=== PATIENT | female | born 1950 | race Caucasian/White ===

== ENCOUNTER 2020-01-04 13:32 | Inpatient (IN) | payer MEDICARE, OTHER ==
--- NOTE | 2020-01-04 14:16 | ED ---
General Adult HPI - General Chief complaint: GI Bleed Stated complaint: GI bleed Time Seen by Provider: 01/04/20 14:04 Source: patient, RN notes reviewed, old records reviewed Mode of arrival: ambulatory Limitations: no limitations - History of Present Illness Initial comments: 69-year-old female presenting for evaluation of rectal bleeding. Patient has had 2 or 3 episodes daily for the past 4 days of bright red rectal bleeding. She's had bleeding both with and without bowel movements. She has history of factor V Leiden and is currently on Coumadin. She states she had an elevated level approximately one week ago greater than 4. She had been evaluated by her primary care physician recommended she present to the emergency department for evaluation of rectal bleeding. She has some mild fatigue, no significant dyspnea, no chest pain. She has some crampy abdominal pain prior to episodes of rectal bleeding. No persistent abdominal pain. No fever. Patient states she had a colonoscopy approximately 3 years ago and was told he had diverticulosis. - Related Data Allergies Allergy/AdvReac Type Severity Reaction Status Date / Time No Known Allergies Allergy Verified 01/04/20 13:40 Review of Systems ROS Statement: Those systems with pertinent positive or pertinent negative responses have been documented in the HPI. ROS Other: All systems not noted in ROS Statement are negative. Past Medical History Additional Past Medical History / Comment(s): fact 5 blood disorder, thrombocyt openia History of Any Multi-Drug Resistant Organisms: None Reported Past Surgical History: Appendectomy, Cholecystectomy, Tonsillectomy, Tubal Ligation Additional Past Surgical History / Comment(s): hemorrhoid Past Psychological History: No Psychological Hx Reported Smoking Status: Never smoker Past Alcohol Use History: None Reported Past Drug Use History: None Reported General Exam Limitations: no limitations General appearance: alert, in no apparent distress Head exam: Present: atraumatic, normocephalic Eye exam: Present: normal appearance, PERRL ENT exam: Present: normal exam Neck exam: Present: normal inspection. Absent: tenderness, meningismus Respiratory exam: Present: normal lung sounds bilaterally Cardiovascular Exam: Present: regular rate, normal rhythm, systolic murmur GI/Abdominal exam: Present: soft. Absent: distended, tenderness, guarding, rebound Rectal exam: Present: normal rectal tone, bloody stool, hemorrhoids (Small nonbleeding hemorrhoid) Extremities exam: Present: normal inspection, normal capillary refill. Absent: pedal edema Neurological exam: Present: alert, oriented X3, CN II-XII intact. Absent: motor sensory deficit Psychiatric exam: Present: normal affect Skin exam: Present: warm, dry, intact. Absent: cyanosis, diaphoretic Course Vital Signs 01/04/20 13:33 Temperature 98.4 F Pulse Rate 106 H Respiratory 16 Rate Blood Pressure 144/89 O2 Sat by Pulse 99 Oximetry Medical Decision Making - Medical Decision Making 69-year-old female presenting with rectal bleeding, hematochezia. No active bleeding at the time my examination. Vital signs are stable. Hemoglobin is 14, INR is subtherapeutic at 1.2. I suspect this is all lower GI hemorrhage however will initiate Protonix for this patient. Repeat hemoglobin has been ordered. She will be admitted for serial hemoglobin, close monitoring, GI consultation. - Lab Data Result diagrams: 01/04/20 14:07 01/04/20 14:07 Lab Results 01/04/20 01/04/20 01/04/20 Range/Units 14:01 14:07 14:07 WBC 5.9 (3.8-10.6) k/uL RBC 4.89 (3.80-5.40) m/uL Hgb 14.8 (11.4-16.0) gm/dL Hct 44.7 (34.0-46.0) % MCV 91.3 (80.0-100.0) fL MCH 30.4 (25.0-35.0) pg MCHC 33.2 (31.0-37.0) g/dL RDW 12.7 (11.5-15.5) % Plt Count 285 (150-450) k/uL Neutrophils % 52 % Lymphocytes % 33 % Monocytes % 7 % Eosinophils % 4 % Basophils % 1 % Neutrophils # 3.1 (1.3-7.7) k/uL Lymphocytes # 1.9 (1.0-4.8) k/uL Monocytes # 0.4 (0-1.0) k/uL Eosinophils # 0.2 (0-0.7) k/uL Basophils # 0.0 (0-0.2) k/uL PT 12.3 H (9.0-12.0) sec INR 1.2 H (<1.2) APTT 27.1 (22.0-30.0) sec Sodium (137-145) mmol/L Potassium (3.5-5.1) mmol/L Chloride (98-107) mmol/L Carbon Dioxide (22-30) mmol/L Anion Gap mmol/L BUN (7-17) mg/dL Creatinine (0.52-1.04) mg/dL Est GFR (CKD-EPI)AfAm (>60 ml/min/1.73 sqM) Est GFR (CKD-EPI)NonAf (>60 ml/min/1.73 sqM) Glucose (74-99) mg/dL Calcium (8.4-10.2) mg/dL Magnesium (1.6-2.3) mg/dL Total Bilirubin (0.2-1.3) mg/dL AST (14-36) U/L ALT (4-34) U/L Alkaline Phosphatase (38-126) U/L Total Protein (6.3-8.2) g/dL Albumin (3.5-5.0) g/dL Blood Type Recheck No Previous Record Bld Type Recheck Status CABO Indicated Spec Expiration Date 01/07/2020 - 230601/04/20 Range/Units 14:07 WBC (3.8-10.6) k/uL RBC (3.80-5.40) m/uL Hgb (11.4-16.0) gm/dL Hct (34.0-46.0) % MCV (80.0-100.0) fL MCH (25.0-35.0) pg MCHC (31.0-37.0) g/dL RDW (11.5-15.5) % Plt Count (150-450) k/uL Neutrophils % % Lymphocytes % % Monocytes % % Eosinophils % % Basophils % % Neutrophils # (1.3-7.7) k/uL Lymphocytes # (1.0-4.8) k/uL Monocytes # (0-1.0) k/uL Eosinophils # (0-0.7) k/uL Basophils # (0-0.2) k/uL PT (9.0-12.0) sec INR (<1.2) APTT (22.0-30.0) sec Sodium 137 (137-145) mmol/L Potassium 4.6 (3.5-5.1) mmol/L Chloride 101 (98-107) mmol/L Carbon Dioxide 27 (22-30) mmol/L Anion Gap 9 mmol/L BUN 15 (7-17) mg/dL Creatinine 0.90 (0.52-1.04) mg/dL Est GFR (CKD-EPI)AfAm 75 (>60 ml/min/1.73 sqM) Est GFR (CKD-EPI)NonAf 65 (>60 ml/min/1.73 sqM) Glucose 110 H (74-99) mg/dL Calcium 9.9 (8.4-10.2) mg/dL Magnesium 2.1 (1.6-2.3) mg/dL Total Bilirubin 0.9 (0.2-1.3) mg/dL AST 30 (14-36) U/L ALT 19 (4-34) U/L Alkaline Phosphatase 87 (38-126) U/L Total Protein 7.9 (6.3-8.2) g/dL Albumin 4.8 (3.5-5.0) g/dL Blood Type Recheck Bld Type Recheck Status Spec Expiration Date Disposition Clinical Impression: Hematochezia Disposition: ADMITTED IP TO THIS [facility] Condition: Stable Is patient prescribed a controlled substance at d/c from ED?: No Referrals: Nicholas Ribera MD [Primary Care Provider] - 1-2 days Decision to Admit Reason: Admit from EC Decision Date: 01/04/20 Decision Time: 14:49
[2020-01-04 14:21] LABS: Basophils % (A) 1 %; Eosinophils # (A) 0.2 k/uL (0-0.7); Eosinophils % (A) 4 %; HCT 44.7 % (34.0-46.0); HGB 14.8 gm/dL (11.4-16.0); Lymphocytes # (A) 1.9 k/uL (1.0-4.8); Lymphocytes % (A) 33 %; MCH 30.4 pg (25.0-35.0); MCHC 33.2 g/dL (31.0-37.0); MCV 91.3 fL (80.0-100.0); Mean Platelet Volume 7.5; Monocytes # (A) 0.4 k/uL (0-1.0); Monocytes % (A) 7 %; Neutrophils # (A) 3.1 k/uL (1.3-7.7); Neutrophils % (A) 52 %; Platelet Count 285 k/uL (150-450); RBC 4.89 m/uL (3.80-5.40); RDW 12.7 % (11.5-15.5); WBC 5.9 k/uL (3.8-10.6)
[2020-01-04 14:33] LABS: Albumin 4.8 g/dL (3.5-5.0); Calcium 9.9 mg/dL (8.4-10.2); Magnesium 2.1 mg/dL (1.6-2.3); Potassium 4.6 mmol/L (3.5-5.1); Total Bilirubin 0.9 mg/dL (0.2-1.3); Total Protein 7.9 g/dL (6.3-8.2)
[2020-01-04 14:36] LABS: INR 1.2 (<1.2); Partial Thromboplastin Time 27.1 sec (22.0-30.0); Prothrombin Time 12.3 sec (9.0-12.0)
[2020-01-04] MEDS ORDERED: NALOXONE 0.4 MG/ML 1 ML VIAL IV PRN (14:46)
[2020-01-04] MEDS ORDERED: PANTOPRAZOLE 40 MG/10 ML VIAL IVP STA (14:46)
[2020-01-04] MEDS ORDERED: ACETAMINOPHEN TAB 325 MG TAB PO PRN (14:46)
[2020-01-04] MEDS ORDERED: PHYTONADIONE 2 MG in SODIUM CHLORIDE 0.9% 50 ML IVPB STA (14:58)
[2020-01-04] MEDS: SODIUM CHLORIDE 0.9% 1,000 ML IV SCH (15:43)
[2020-01-04] MEDS: PANTOPRAZOLE 40 MG/10 ML VIAL IVP SCH (20:14)
[2020-01-04 20:21] LABS: Basophils % (A) 1 %; Eosinophils # (A) 0.3 k/uL (0-0.7); Eosinophils % (A) 5 %; HCT 39.7 % (34.0-46.0); HGB 12.8 gm/dL (11.4-16.0); Lymphocytes # (A) 1.8 k/uL (1.0-4.8); Lymphocytes % (A) 35 %; MCH 29.6 pg (25.0-35.0); MCHC 32.2 g/dL (31.0-37.0); Mean Platelet Volume 7.2; Monocytes # (A) 0.5 k/uL (0-1.0); Monocytes % (A) 9 %; Neutrophils # (A) 2.4 k/uL (1.3-7.7); Neutrophils % (A) 47 %; Platelet Count 257 k/uL (150-450); RBC 4.32 m/uL (3.80-5.40); RDW 12.8 % (11.5-15.5); WBC 5.2 k/uL (3.8-10.6)
--- NOTE | 2020-01-04 22:43 | P.HPIM ---
History of Present Illness H&P Date: 01/04/20 Chief Complaint: Bright red blood per rectum History of presenting complaint: This is a very pleasant 69-year-old patient of Dr. Connor Ribera. 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 About a week ago her INR was up her dose was changed. For last 4 days patient is having intermittent bright red blood per rectum. Also having abdominal cramping with that. Patient had a colonoscopy 3 years ago was found of diverticulosis. Patient has been dizzy lightheaded. The cramping starts in the upper abdomen and goes downwards. INR was 1.20 ER. 2 mg of vitamin K was given. GI was consulted. Patient does feel weak tired rundown. Review of systems: GEN.: Tired EYES: None HEENT: None NECK: None RESPIRATORY: None CARDIOVASCULAR: None GASTROINTESTINAL: As above GENITOURINARY: None MUSCULOSKELETAL: Mild joint pains LYMPHATICS: None HEMATOLOGICAL: [As above PSYCHIATRY: None NEUROLOGICAL: None Past medical history to include: Factor V bated mutation, thrombocytopenia, diverticulosis Social history: Does not smoke or drink alcohol. Son lives with her. Physical examination: VITAL SIGNS: 98.4, 106, 16, blood pressure 144/89, 99% on room air GENERAL: BMI 19.3, laying in bed. EYES: Pupils equal. Conjunctiva normal. HEENT: External appearance of nose and ears normal, oral cavity grossly normal. NECK: JVD not raised; masses not palpable. HEART: First and second heart sounds are normal; no edema. LUNGS: Respiratory rate normal; clear to auscultation. MUSCULOSKELETAL: Evidence of OA especially in the hands ABDOMEN: Soft, nontender, liver spleen not palpable, no masses palpable. PSYCH: Alert and oriented x3; mood and affect normal. NEUROLOGICAL: Cranial nerves grossly intact; no facial asymmetry, power and sensation grossly intact. LYMPHATICS: No lymph nodes palpable in the axilla and neck INVESTIGATIONS, reviewed in the clinical context: White count 5.9 hemoglobin 14.8. Repeat 12.8 potassium 4.6 creatinine 0.9 INR 1.2 Assessment: -Acute GI bleed with tiffany bleeding, could be diverticular in nature. There is no white count or fever. -Colonic diverticulosis -Coumadin monitoring -Factor V Leyden mutation Plan: 2 mg of vitamin K was given earlier. Coumadin has been held. Other home medications to be reviewed. Repeat CBC in the morning. GI was consulted. Care was discussed the patient questions were answered. She'll be kept with clear liquid diet Past Medical History Additional Past Medical History / Comment(s): fact 5 blood disorder, thrombocytopenia, Diverticulosis History of Any Multi-Drug Resistant Organisms: None Reported Past Surgical History: Appendectomy, Cholecystectomy, Tonsillectomy, Tubal Ligation Additional Past Surgical History / Comment(s): hemorrhoid Past Psychological History: No Psychological Hx Reported Smoking Status: Never smoker Past Alcohol Use History: None Reported Past Drug Use History: None Reported - Past Family History Father History Unknown: Yes Mother History Unknown: Yes Medications and Allergies Home Medications Medication Instructions Recorded Confirmed Type ALPRAZolam [Xanax] 0.5 mg PO DAILY PRN 01/04/20 01/04/20 History Atorvastatin [Lipitor] 10 mg PO DAILY 01/04/20 01/04/20 History Cetirizine HCl [Zyrtec] 10 mg PO DAILY 01/04/20 01/04/20 History Cholecalciferol [Vitamin D3 (25 1,000 unit PO DAILY 01/04/20 01/04/20 History Mcg = 1000 Iu)] Gabapentin 600 mg PO TID 01/04/20 01/04/20 History HYDROcodone/APAP 10-325MG [[place] 1 tab PO TID 01/04/20 01/04/20 History 10-325] Levothyroxine Sodium [Synthroid] 100 mcg PO DAILY 01/04/20 01/04/20 History Lisinopril [Zestril] 5 mg PO DAILY 01/04/20 01/04/20 History Meclizine [Antivert] 25 mg PO Q8H PRN 01/04/20 01/04/20 History Ondansetron HCl [Zofran] 8 mg PO Q8H PRN 01/04/20 01/04/20 History Pantoprazole [Protonix] 40 mg PO DAILY 01/04/20 01/04/20 History Warfarin [Coumadin] 3 mg PO SUTUWETHSA 01/04/20 01/04/20 History Warfarin [Coumadin] 6 mg PO MOFR 01/04/20 01/04/20 History Allergies Allergy/AdvReac Type Severity Reaction Status Date / Time No Known Allergies Allergy Verified 01/04/20 18:15 Physical Exam Vitals: Vital Signs Temp Pulse Pulse Resp BP BP Pulse Ox 01/04/20 20:00 98.1 F 73 16 112/66 97 01/04/20 16:00 78 18 01/04/20 15:51 98.4 F 72 18 134/75 98 01/04/20 15:35 98.1 F 97 18 141/81 97 01/04/20 15:00 79 15 149/90 97 01/04/20 14:23 98 01/04/20 13:33 98.4 F 106 H 16 144/89 99 Intake and Output 01/04/20 01/04/20 01/04/20 06:59 14:59 22:59 Other: Voiding Method Toilet # Voids 1 Weight 52.617 kg 52.617 kg Results CBC & Chem 7: 01/04/20 20:07 01/04/20 14:07 Labs: Abnormal Lab Results - Last 24 Hours (Table) 01/04/20 01/04/20 Range/Units 14:07 14:07 PT 12.3 H (9.0-12.0) sec INR 1.2 H (<1.2) Glucose 110 H (74-99) mg/dL
[2020-01-04] MEDS: ALPRAZolam 0.5 MG TAB PO PRN (22:45)
[2020-01-04] MEDS: GABAPENTIN 300 MG CAP PO SCH (22:46)
[2020-01-05] MEDS: LEVOTHYROXINE 50 MCG TAB PO SCH (06:05)
[2020-01-05 06:17] LABS: Basophils % (A) 1 %; Eosinophils # (A) 0.4 k/uL (0-0.7); Eosinophils % (A) 9 %; HCT 40.9 % (34.0-46.0); Lymphocytes # (A) 1.6 k/uL (1.0-4.8); Lymphocytes % (A) 37 %; MCH 29.5 pg (25.0-35.0); MCHC 31.8 g/dL (31.0-37.0); MCV 92.7 fL (80.0-100.0); Mean Platelet Volume 7.2; Monocytes # (A) 0.3 k/uL (0-1.0); Monocytes % (A) 8 %; Neutrophils # (A) 1.8 k/uL (1.3-7.7); Neutrophils % (A) 42 %; Platelet Count 225 k/uL (150-450); RBC 4.42 m/uL (3.80-5.40); RDW 12.7 % (11.5-15.5); WBC 4.3 k/uL (3.8-10.6)
[2020-01-05 06:33] LABS: Albumin 3.8 g/dL (3.5-5.0); Calcium 9.1 mg/dL (8.4-10.2); Potassium 4.8 mmol/L (3.5-5.1); Total Protein 6.6 g/dL (6.3-8.2)
[2020-01-05 07:47] LABS: T4, Free (Free Thyroxine) 1.24 ng/dL (0.78-2.19)
[2020-01-05] MEDS: GABAPENTIN 300 MG CAP PO SCH ×3 (08:51→21:50)
[2020-01-05] MEDS: PANTOPRAZOLE 40 MG/10 ML VIAL IVP SCH ×2 (08:51→20:25)
[2020-01-05] MEDS: HYDROcodone/APAP 10-325MG 1 EACH TAB PO SCH ×3 (08:51→21:50)
[2020-01-05] MEDS: ATORVASTATIN 10 MG TAB PO SCH (08:51)
[2020-01-05] MEDS ORDERED: IOPAMIDOL CONTRAST (ORAL USE) VIAL PO PRN (12:22)
[2020-01-05 13:27] VITALS: BMI 19.0
[2020-01-05] MEDS: PIPERACILLIN-TAZOBACTAM 3.375 GM in SODIUM CHLORIDE 0.9% 100 ML IVPB SCH (13:31)
--- NOTE | 2020-01-05 15:24 | CT ---
EXAMINATION TYPE: CT abdomen pelvis w con DATE OF EXAM: 01/05/2020 COMPARISON: None HISTORY: hematochezia, gi bleed CT DLP: 555.8 mGycm Automated exposure control for dose reduction was used. CONTRAST: Performed with IV Contrast, patient injected with 100 mL of Isovue 300. Lung bases are clear. There is no pleural effusion. Heart size is normal. There is no pericardial eff usion. Liver spleen stomach pancreas appear normal. Gallbladder is absent. The bile ducts are not dilated. There is no adrenal mass. Kidneys have normal size and contour. There is some mild enlargement of the left and right renal pelvis. Delayed images show no sign of obstruction. There is no retroperitoneal adenopathy. Ureters are not dilated. Bladder distends smoothly. There is no free fluid in the pelvis . There is no inguinal hernia. There is no mesenteric edema. There is no ascites or free air. There is no sign of a bowel obstructio n. Lumbar spine is intact. Bony pelvis is intact. There is some hypertrophic osteoarthritis in the ri ght hip joint with spurring of the femoral head. Appendix is not seen. No sign of neck and appendix. There is mild atheromatous change in the abdominal aorta. 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 IMPRESSION: No acute abnormality of the abdomen and pelvis. I do not see a cause for hematochezia.
--- NOTE | 2020-01-05 17:01 | P.PN ---
Progress Note - Text Progress Note Date: 01/05/20 Chief Complaint: Bright red blood per rectum History of presenting complaint: This is a very pleasant 69-year-old patient of Dr. Connor Ribera. 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 About a week ago her INR was up her dose was changed. For last 4 days patient is having intermittent bright red blood per rectum. Also having abdominal cramping with that. Patient had a colonoscopy 3 years ago was found of diverticulosis. Patient has been dizzy lightheaded. The cramping starts in the upper abdomen and goes downwards. INR was 1.20 ER. 2 mg of vitamin K was given. GI was consulted. Patient does feel weak tired rundown. Today-getting intermittent abdominal cramping. No further bleeding. No fever no chills. On a clear liquid diet. Review of systems: Was done for constitutional, cardiovascular, GI, pulmonary. relevant finding as above Active Medications Acetaminophen (Tylenol Tab) 650 mg PO Q6HR PRN PRN Reason: Mild Pain or Fever > 100.5 Hydrocodone Bitart/Acetaminophen ([place] 10) 1 each PO TID [facility] Last Admin: 01/05/20 08:51 Dose: 1 each Documented by: Alprazolam (Xanax) 0.5 mg PO DAILY PRN PRN Reason: Anxiety Last Admin: 01/04/20 22:45 Dose: 0.25 mg Documented by: Atorvastatin Calcium (Lipitor) 10 mg PO DAILY [facility] Last Admin: 01/05/20 08:51 Dose: 10 mg Documented by: Gabapentin (Neurontin) 600 mg PO TID [facility] Last Admin: 01/05/20 08:51 Dose: Not Given Documented by: Sodium Chloride (Saline 0.9%) 1,000 mls @ 20 mls/hr IV .Q24H [facility] Last Admin: 01/04/20 15:43 Dose: 20 mls/hr Documented by: Piperacillin Sod/Tazobactam (Sod 3.375 gm/ Sodium Chloride) 100 mls @ 25 mls/hr IVPB Q8HR [facility] Last Admin: 01/05/20 13:31 Dose: 25 mls/hr Documented by: Levothyroxine Sodium (Synthroid) 100 mcg PO DAILY@0630 [facility] Last Admin: 01/05/20 06:05 Dose: 100 mcg Documented by: Metronidazole (Flagyl) 500 mg PO TID [facility] Naloxone HCl (Narcan) 0.2 mg IV Q2M PRN PRN Reason: Opioid Reversal Pantoprazole Sodium (Protonix) 40 mg IVP BID [facility] Last Admin: 01/05/20 08:51 Dose: 40 mg Documented by: Physical examination: VITAL SIGNS: 98.1, 78, 18, blood pressure 139/71, 100% on room air GENERAL: Laying in bed, awake EYES: Pupils equal. Conjunctiva normal. HEENT: External appearance of nose and ears normal, oral cavity grossly normal. NECK: JVD not raised; masses not palpable. HEART: First and second heart sounds are normal; no edema. LUNGS: Respiratory rate normal; clear to auscultation. MUSCULOSKELETAL: Evidence of OA especially in the hands ABDOMEN: Soft, mild tenderness, liver spleen not palpable, no masses palpable. PSYCH: Alert and oriented x3; mood and affect normal. INVESTIGATIONS, reviewed in the clinical context: White count 5.9 hemoglobin 14.8. Repeat 12.8 potassium 4.6 creatinine 0.9 INR 1.2 Assessment: -Acute GI bleed with tiffany bleeding, could be diverticular in nature. Need to rule out low-grade diverticulitis -Colonic diverticulosis -Coumadin monitoring -Factor V Leyden mutation Plan: Computed tomography scan of the abdomen and pelvis with contrast was ordered. Starting the patient on IV Zosyn and Flagyl. GI input pending. Discussed the patient.
[2020-01-05] MEDS: metroNIDAZOLE 500 MG TAB PO SCH ×2 (17:51→17:55)
--- NOTE | 2020-01-05 20:12 | P.CONS ---
History of Present Illness - Reason for Consult Consult date: 01/05/20 Blood per rectum Requesting physician: Amadou Vivas - Chief Complaint Rectal hemorrhage - History of Present Illness 69-year-old female with factor 5 Leiden deficiency on Coumadin therapy, diverticulosis and colon polyps presented to the hospital with complaints of bright red blood per rectum. She reports 4 days of intermittent bright red blood per rectum. She reports that this was occurring approximately 2-3 times per day. She reports blood was associated with bowel movements. No prior episodes of similar bleeding. She does report some associated abdominal cr amping in the upper abdomen and abdominal distention. She does report feeling lightheaded and weak however hemoglobin remained normal on presentation at 12.8 currently 13 with a WBC of 4.3, platelet count 235,000, INR 1.2 after the given vitamin K with a total bilirubin 1, alkaline phosphatase 57, AST 25 and ALTs 16. Patient reports last colonoscopy approximately 3 years ago significant for poly ps and diverticulosis. The skin of the abdomen performed after presentation to the hospital was negative for any source of bleeding. Review of Systems REVIEW OF SYSTEMS: CONSTITUTIONAL: Denies any fevers, chills, weight change but she did report fati darrius. CARDIOVASCULAR: Denies any chest pain, palpitations high or low blood pressures RESPIRATORY: Denies any shortness of breath, hemoptysis or cough. GENITOURINARY: No dysuria or hematuria. MUSCULOSKELETAL: No weakness reported. SKIN: Denies any new rashes or lesions, jaundice or pallor. PSYCHIATRIC: Denies any depression or anxiety. NEUROLOGY: Denies headache, denies any new focal deficits. EARS/NOSE/THROAT: No recent hearing change, congestion, nasal discharge or sore throat. EYES: No pain in eyes, discharge or change in vision. GASTROINTESTINAL: As per HPI. Past Medical History Past Medical History: Hypertension, Thyroid Disorder Additional Past Medical History / Comment(s): fact 5 blood disorder, thr ombocytopenia, Diverticulosis History of Any Multi-Drug Resistant Organisms: None Reported Past Surgical History: Appendectomy, Cholecystectomy, Tonsillectomy, Tubal Ligation Additional Past Surgical History / Comment(s): hemorrhoid Past Psychological History: No Psychological Hx Reported Smoking Status: Never smoker Past Alcohol Use History: None Reported Past Drug Use History: None Reported - Past Family History Father History Unknown: Yes Mother History Unknown: Yes Medications and Allergies Home Medications Medication Instructions Recorded Confirmed Type ALPRAZolam [Xanax] 0.5 mg PO DAILY PRN 01/04/20 01/04/20 History Atorvastatin [Lipitor] 10 mg PO DAILY 01/04/20 01/04/20 History Cetirizine HCl [Zyrtec] 10 mg PO DAILY 01/04/20 01/04/20 History Cholecalciferol [Vitamin D3 (25 1,000 unit PO DAILY 01/04/20 01/04/20 History Mcg = 1000 Iu)] Gabapentin 600 mg PO TID 01/04/20 01/04/20 History HYDROcodone/APAP 10-325MG [[place] 1 tab PO TID 01/04/20 01/04/20 History 10-325] Levothyroxine Sodium [Synthroid] 100 mcg PO DAILY 01/04/20 01/04/20 History Lisinopril [Zestril] 5 mg PO DAILY 01/04/20 01/04/20 History Meclizine [Antivert] 25 mg PO Q8H PRN 01/04/20 01/04/20 History Ondansetron HCl [Zofran] 8 mg PO Q8H PRN 01/04/20 01/04/20 History Pantoprazole [Protonix] 40 mg PO DAILY 01/04/20 01/04/20 History Warfarin [Coumadin] 3 mg PO SUTUWETHSA 01/04/20 01/04/20 History Warfarin [Coumadin] 6 mg PO MOFR 01/04/20 01/04/20 History Allergies Allergy/AdvReac Type Severity Reaction Status Date / Time No Known Allergies Allergy Verified 01/04/20 18:15 Physical Exam Vitals: Vital Signs Temp Pulse Pulse Resp BP BP Pulse Ox 01/05/20 08:00 97.6 F 72 18 125/79 100 01/05/20 03:59 97.7 F 65 16 96/58 98 01/04/20 23:31 98 F 65 16 107/68 96 01/04/20 20:00 98.1 F 73 16 112/66 97 01/04/20 16:00 78 18 01/04/20 15:51 98.4 F 72 18 134/75 98 01/04/20 15:35 98.1 F 97 18 141/81 97 01/04/20 15:00 79 15 149/90 97 01/04/20 14:23 98 01/04/20 13:33 98.4 F 106 H 16 144/89 99 Intake and Output 01/04/20 01/05/20 01/05/20 22:59 06:59 14:59 Intake Total 100 980 Balance 100 980 Intake: Intake, IV Titration 100 Amount Sodium Chloride 0.9% 1, 100 000 ml @ 20 mls/hr IV . Q24H [facility] Rx#:[id number] Oral 980 Other: Voiding Method Toilet Toilet Toilet # Voids 1 1 Weight 52.617 kg 51.8 kg On physical examination, patient appears comfortable in no apparent distress. HEAD: Normocephalic, atraumatic. EYES: No scleral icterus. No conjunctival injection. MOUTH: No lesions, tongue midline. NECK: Trachea midline, no gross abnormalities. CHEST: Clear to auscultation with no wheezing or rhonchi appreciated. HEART: Regular rate and rhythm. ABDOMEN: Soft, thin and nontender. Bowel sounds are positive. No organomegaly. No guarding or rigidity. EXTREMITIES: No pedal edema. SKIN: No rashes, no jaundice. NEUROLOGIC: Alert and oriented x3. No focal deficits. Results CBC & Chem 7: 01/05/20 05:35 01/05/20 05:35 Labs: Abnormal Lab Results - Last 24 Hours (Table) 01/04/20 01/04/20 01/05/20 Range/Units 14:07 14:07 05:35 PT 12.3 H (9.0-12.0) sec INR 1.2 H (<1.2) Glucose 110 H 100 H (74-99) mg/dL TSH 4.760 H (0.465-4.680) mIU/L CT scan - abdomen: report reviewed (Computed tomography scan of the abdomen with no acute findings to explain lower GI bleed) Assessment and Plan (1) Hematochezia Narrative/Plan: 69-year-old female on anticoagulation therapy presenting with or days of painless bright red blood per rectum. No prior episodes of similar bleeding. She reports diverticulosis on last colonoscopy 3 years ago. Hemoglobin has remained stable currently of 13 from 12.8. Unclear etiology with differential including hemorrhoidal bleeding, diverticular bleed, AVM, ulcer, or other etiology. Current Visit: Yes Status: Acute Code(s): K92.1 - MELENA SNOMED Code(s): 4 79767225 (2) History of diverticulosis Current Visit: Yes Status: Acute Code(s): Z87.19 - PERSONAL HISTORY OF OTHER DISEASES OF THE DIGESTIVE SYSTEM SNOMED Code(s): 693376119 Plan: Supportive care Continue to monitor hemoglobin and hematocrit and transfuse as needed Okay for liquid diet, advance to low fiber low residual diet tomorrow if patient remains hemodynamically stable with normal hemoglobin and no further episodes of bleeding Anusol twice a day added Continue to hold anticoagulation therapy for an additional 48 hours, if no further signs or symptoms of bleeding and hemoglobin remains stable okay to resume No plan for colonoscopy at this time Thank you for allowing us to participate in the care of the patient
[2020-01-05] MEDS: ALPRAZolam 0.5 MG TAB PO PRN (20:27)
[2020-01-05] MEDS: HYDROCORTISONE SUPPOSITORY 25 MG SUPP RECTAL SCH (21:50)
[2020-01-06] MEDS: PIPERACILLIN-TAZOBACTAM 3.375 GM in SODIUM CHLORIDE 0.9% 100 ML IVPB SCH ×2 (00:53→09:17)
[2020-01-06] MEDS: metroNIDAZOLE 500 MG TAB PO SCH ×3 (00:55→16:11)
[2020-01-06] MEDS: SODIUM CHLORIDE 0.9% 1,000 ML IV SCH (01:01)
[2020-01-06 03:53] VITALS: RESP 16; TEMP 97.6
[2020-01-06] MEDS: LEVOTHYROXINE 50 MCG TAB PO SCH (06:35)
[2020-01-06] MEDS: PANTOPRAZOLE 40 MG/10 ML VIAL IVP SCH (09:17)
[2020-01-06] MEDS: ATORVASTATIN 10 MG TAB PO SCH (09:17)
[2020-01-06] MEDS: GABAPENTIN 300 MG CAP PO SCH ×2 (09:18→16:43)
[2020-01-06] MEDS: HYDROcodone/APAP 10-325MG 1 EACH TAB PO SCH ×2 (09:19→16:42)
[2020-01-06] MEDS: HYDROCORTISONE SUPPOSITORY 25 MG SUPP RECTAL SCH (09:19)
[2020-01-06 11:06] VITALS: BP 136/85; PULSE 72
--- NOTE | 2020-01-06 17:48 | P.PN ---
Subjective Progress Note Date: 01/06/20 Principal diagnosis: Lower GI bleed, rectal hemorrhage Patient seen lying in bed denying any further episodes of GI bleeding. Tolerating diet. Objective - Vital Signs Vital signs: Vital Signs Temp 97.6 F 01/06/20 08:00 Pulse 72 01/06/20 08:00 Resp 16 01/06/20 08:00 BP 136/85 01/06/20 08:00 Pulse Ox 99 01/06/20 08:00 Intake & Output 01/05/20 01/06/20 01/06/20 18:59 06:59 18:59 Intake Total 2964 120 702 Output Total 2900 250 900 Balance 64 -130 -198 Weight 51.8 kg 53 kg Intake: Intake, IV Titration 120 Amount Sodium Chloride 0.9% 1, 120 000 ml @ 20 mls/hr IV . Q24H TSERING Rx#:[id number] Oral 2964 702 Output: Urine 2900 250 900 Other: Voiding Method Toilet Toilet Toilet # Voids 3 - Exam On physical examination, patient appears comfortable in no apparent distress. HEAD: Normocephalic, atraumatic. EYES: No scleral icterus. No conjunctival injection. MOUTH: No lesions, tongue midline. NECK: Trachea midline, no gross abnormalities. ABDOMEN: Soft, obese. Bowel sounds are positive. No organomegaly. No guarding or rigidity. EXTREMITIES: No pedal edema. SKIN: No rashes, no jaundice. NEUROLOGIC: Alert and oriented x3. No focal deficits. - Labs CBC & Chem 7: 01/05/20 05:35 01/05/20 05:35 Assessment and Plan (1) Hematochezia Narrative/Plan: 69-year-old female on anticoagulation therapy presenting with or days of painless bright red blood per rectum. No prior episodes of similar bleeding. She reports diverticulosis on last colonoscopy 3 years ago. Hemoglobin has remained stable currently of 13 from 12.8. Unclear etiology with differential including hemorrhoidal bleeding, diverticular bleed, AVM, ulcer, or other etiology. Status: Acute Code(s): K92.1 - MELENA SNOMED Code(s): 794976952 (2) History of diverticulosis Status: Acute Code(s): Z87.19 - PERSONAL HISTORY OF OTHER DISEASES OF THE DIGESTIVE SYSTEM SNOMED Code(s): 900240558 Plan: Supportive care Continue to monitor hemoglobin and hematocrit and transfuse as needed Okay for liquid diet, advance to low fiber low residual diet tomorrow if patient remains hemodynamically stable with normal hemoglobin and no further episodes of bleeding Anusol twice a day added Continue to hold anticoagulation therapy for an additional 48 hours, if no further signs or symptoms of bleeding and hemoglobin remains stable okay to resume No plan for colonoscopy at this time Thank you for allowing us to participate in the care of the patient
[2020-01-06] MEDS ORDERED: AMOXIC-POT CLAV 875-125MG 1 EACH TAB PO SCH (18:00)
--- NOTE | 2020-01-08 20:35 | P.DS ---
Providers Date of admission: 01/04/20 14:46 Expected date of discharge: 01/06/20 Attending physician: Amadou Vivas Consults: 01/04/20 14:47 Consult Physician Routine Consulting Provider: Jatin Cardenas Consult Reason/Comments: Hematochezia Do you want consulting provider notified?: Yes Primary care physician: Nicholas Ribera [facility] Course: Chief Complaint: Bright red blood per rectum History of presenting complaint: This is a very pleasant 69-year-old patient of Dr. Connor Ribera. 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 About a week ago her INR was up her dose was changed. For last 4 days patient is having intermittent bright red blood per rectum. Also having abdominal cramping with that. Patient had a colonoscopy 3 years ago was found of diverticulosis. Patient has been dizzy lightheaded. The cramping starts in the upper abdomen and goes downwards. INR was 1.20 ER. 2 mg of vitamin K was given. GI was consulted. Patient does feel weak tired rundown. Admitted with-likely diverticular bleeding/hematochezia. Managed conservatively. Today-pain better. No abdominal pain. Discussed with the patient. Cleared by GI. Tolerating diet. Patient to resume her anticoagulation 7 days if no repeated bleeding Consultation: Dr. Rocha from GI Physical examination: VITAL SIGNS: 97.6, 72, 16, 136/85, 99% on room air GENERAL: Sitting up, comfortable EYES: Pupils equal. Conjunctiva normal. HEENT: External appearance of nose and ears normal, oral cavity grossly normal. NECK: JVD not raised; masses not palpable. HEART: First and second heart sounds are normal; no edema. LUNGS: Respiratory rate normal; clear to auscultation. MUSCULOSKELETAL: Evidence of OA especially in the hands ABDOMEN: Soft, no tenderness, liver spleen not palpable, no masses palpable. PSYCH: Alert and oriented x3; mood and affect normal. INVESTIGATIONS, reviewed in the clinical context: White count 4.3 hemoglobin 13 creatinine 0.89 Previous testing White count 5.9 hemoglobin 14.8. Repeat 12.8 potassium 4.6 creatinine 0.9 INR 1.2 Assessment: -Acute GI bleed with tiffany bleeding, likely colonic diverticular in nature. -Colonic diverticulosis -Coumadin monitoring -Factor V Leyden mutation Disposition: Home Patient Condition at Discharge: Stable Plan - Discharge Summary Discharge Rx Participant: Yes New Discharge Prescriptions: New Amoxic-Pot Clav 875-125Mg [Augmentin 875-125] 1 each PO Q12HR #14 tab metroNIDAZOLE [Flagyl] 500 mg PO TID #21 tab Continue Levothyroxine Sodium [Synthroid] 100 mcg PO DAILY Atorvastatin [Lipitor] 10 mg PO DAILY Cholecalciferol [Vitamin D3 (25 Mcg = 1000 Iu)] 1,000 unit PO DAILY Ondansetron HCl [Zofran] 8 mg PO Q8H PRN PRN Reason: Nausea And Vomiting HYDROcodone/APAP 10-325MG [Palmer 10-325] 1 tab PO TID Gabapentin 600 mg PO TID ALPRAZolam [Xanax] 0.5 mg PO DAILY PRN PRN Reason: Anxiety Pantoprazole [Protonix] 40 mg PO DAILY Discontinued Lisinopril [Zestril] 5 mg PO DAILY Cetirizine HCl [Zyrtec] 10 mg PO DAILY Meclizine [Antivert] 25 mg PO Q8H PRN PRN Reason: DIZZINESS No Action Warfarin [Coumadin] 3 mg PO SUTUWETHSA Warfarin [Coumadin] 6 mg PO MOFR Discharge Medication List ALPRAZolam [Xanax] 0.5 mg PO DAILY PRN 01/04/20 [History] Atorvastatin [Lipitor] 10 mg PO DAILY 01/04/20 [History] Cholecalciferol [Vitamin D3 (25 Mcg = 1000 Iu)] 1,000 unit PO DAILY 01/04/20 [History] Gabapentin 600 mg PO TID 01/04/20 [History] HYDROcodone/APAP 10-325MG [Palmer 10-325] 1 tab PO TID 01/04/20 [History] Levothyroxine Sodium [Synthroid] 100 mcg PO DAILY 01/04/20 [History] Ondansetron HCl [Zofran] 8 mg PO Q8H PRN 01/04/20 [History] Pantoprazole [Protonix] 40 mg PO DAILY 01/04/20 [History] Warfarin [Coumadin] 3 mg PO SUTUWETHSA 01/04/20 [History] Warfarin [Coumadin] 6 mg PO MOFR 01/04/20 [History] Amoxic-Pot Clav 875-125Mg [Augmentin 875-125] 1 each PO Q12HR #14 tab 03/22/20 [Rx] metroNIDAZOLE [Flagyl] 500 mg PO TID #21 tab 01/06/20 [Rx] Follow up Appointment(s)/Referral(s): Nicholas Ribera MD [Primary Care Provider] - 1 Week Jatin Cardenas MD [STAFF PHYSICIAN] - 2 Weeks Patient Instructions/Handouts: Gastrointestinal Bleeding (DC), Diverticulitis (DC) Activity/Diet/Wound Care/Special Instructions: Start Coumadin on January 10 Discharge Disposition: HOME SELF-CARE
== END 2020-01-06 17:10 | disposition home or self-care (01) | DRG 378 ==
LOC: EC 13:32 → 3SCARD 14:46
PROVIDERS: ADMIT Hospitalist; ATTEND Hospitalist
DX: K57.31 Diverticulosis of large intestine without perforation or abscess with bleeding (principal); D68.51 Activated protein C resistance; I10 Essential (primary) hypertension; E07.9 Disorder of thyroid, unspecified; K64.9 Unspecified hemorrhoids; Z79.890 Hormone replacement therapy; Z79.01 Long term (current) use of anticoagulants; Z79.899 Other long term (current) drug therapy; Z98.51 Tubal ligation status; Z90.49 Acquired absence of other specified parts of digestive tract; Z86.010 Personal history of colon polyps
CPT/HCPCS: 36415; 74177; 80053; 83735; 84439; 84443; 85025; 85610; 85730; 86850; 86900; 86901; 96365; 96375; 99284

== ENCOUNTER 2020-02-19 16:58 | Observation (INO) | payer MEDICARE, OTHER ==
--- NOTE | 2020-02-19 17:32 | ED ---
Chest Pain HPI - General Source: patient Mode of arrival: ambulatory Limitations: no limitations <Heavenly Velazquez - Last Filed: 02/19/20 20:06> <Fiona Clements - Last Filed: 02/24/20 00:02> - General Chief Complaint: Chest Pain Stated Complaint: Chest pain Time Seen by Provider: 02/19/20 17:17 - History of Present Illness Initial Comments: Patient is a 69-year-old female presenting to the emergency Department with complaints of left-sided chest pain that has been intermittent since approximately 1 PM today. Patient states she was getting ready to go to [facility] when she had pain in the left side of her chest that made her double over. Patient states this initial episode lasted approximately 10-15 minutes. She laid on the couch and rested and then it seemed to subside. Patient then started having palpitations. Patient states these episodes Happening over the past few hours so she decided to come in to be seen. She is currently on Coumadin secondary to TIAs. She denies any falls or trauma. She states she is not having any pain at this moment. She did take Xanax approximate 2 hours ago which did seem to help her symptoms some. She denies any recent fever, chills, shortness of breath. She denies history of heart disease. She states she does have an ear no bowel and is awaiting a colonoscopy. She did have a normal bowel movement this morning. She is having some mild abdominal cramping, no sharp shooting pain. She denies nausea, vomiting, diarrhea. She has no other complaints at this time. Upon arrival to the ER her vital signs are stable. (Heavenly Velazquez) - Related Data Home Medications Medication Instructions Recorded Confirmed Atorvastatin [Lipitor] 10 mg PO DAILY 01/04/20 02/19/20 Cholecalciferol [Vitamin D3 (25 1,000 unit PO DAILY 01/04/20 02/19/20 Mcg = 1000 Iu)] Warfarin [Coumadin] 3 mg PO SUTUWETHSA@1800 01/04/20 02/19/20 Warfarin [Coumadin] 6 mg PO MOFR@1800 01/04/20 02/19/20 Cetirizine HCl [Zyrtec] 10 mg PO DAILY@1800 02/19/20 02/19/20 Levothyroxine Sodium [Synthroid] 50 mcg PO DAILY 02/19/20 02/19/20 Lisinopril [Zestril] 5 mg PO DAILY 02/19/20 02/19/20 Previous Rx's Medication Instructions Recorded Pantoprazole [Protonix] 40 mg PO BID #60 tab 02/20/20 Psyllium Husk (with Sugar) 0 gm PO BID #60 gm 02/20/20 [Metamucil Powder] Allergies Allergy/AdvReac Type Severity Reaction Status Date / Time No Known Allergies Allergy Verified 02/19/20 18:56 Review of Systems ROS Other: All systems not noted in ROS Statement are negative. <Heavenly Velazquez - Last Filed: 02/19/20 20:06> ROS Other: All systems not noted in ROS Statement are negative. <Fiona Clements - Last Filed: 02/24/20 00:02> ROS Statement: Those systems with pertinent positive or pertinent negative responses have been documented in the HPI. EKG Findings - EKG Comments: EKG Findings:: Normal sinus rhythm, normal ECG, no signs of acute ischemia. Ventricular rate 82, SD interval 122, QTC 436. <Heavenly Velazquez - Last Filed: 02/19/20 20:06> Past Medical History Past Medical History: Hypertension, Thyroid Disorder Additional Past Medical History / Comment(s): fact 5 blood disorder, thrombocytopenia, Diverticulosis History of Any Multi-Drug Resistant Organisms: None Reported Past Surgical History: Appendectomy, Cholecystectomy, Tonsillectomy, Tubal Ligation Additional Past Surgical History / Comment(s): hemorrhoid Past Psychological History: No Psychological Hx Reported Smoking Status: Never smoker Past Alcohol Use History: None Reported Past Drug Use History: None Reported - Past Family History Father History Unknown: Yes Mother History Unknown: Yes <Heavenly Velazquez - Last Filed: 02/19/20 20:06> General Exam Limitations: no limitations <Heavenly Velazquez - Last Filed: 02/19/20 20:06> - General Exam Comments Initial Comments: GENERAL: Well-appearing, well-nourished and in no acute distress. HEAD: Atraumatic, normocephalic. EYES: Pupils equal round and reactive to light, extraocular movements intact, sclera anicteric, conjunctiva are normal. ENT: TMs normal, nares patent, oropharynx clear without exudates. Moist mucous membranes. NECK: Normal range of motion, supple without lymphadenopathy or JVD. LUNGS: Breath sounds clear to auscultation bilaterally and equal. No wheezes rales or rhonchi. HEART: Regular rate and rhythm without murmurs, rubs or gallops. ABDOMEN: Soft, nontender, normoactive bowel sounds. No guarding, no rebound. No masses appreciated. : Deferred EXTREMITIES: Normal range of motion, no pitting or edema. No clubbing or cyanosis. NEUROLOGICAL: Cranial nerves II through XII grossly intact. Normal speech, normal gait. PSYCH: Normal mood, normal affect. SKIN: Warm, Dry, normal turgor, no rashes or lesions noted. (Heavenly Velazquez) Course Vital Signs 02/19/20 02/19/20 02/19/20 17:01 17:03 18:03 Temperature 98.0 F Pulse Rate 95 74 Respiratory 20 20 20 Rate Blood Pressure 154/84 151/97 O2 Sat by Pulse 98 100 Oximetry 02/19/20 02/19/20 02/19/20 19:00 19:03 20:00 Temperature Pulse Rate 66 74 65 Respiratory 18 20 18 Rate Blood Pressure 164/97 151/92 149/94 O2 Sat by Pulse 97 100 97 Oximetry 02/19/20 02/19/20 21:00 22:00 Temperature Pulse Rate 64 64 Respiratory 18 16 Rate Blood Pressure 135/87 108/63 O2 Sat by Pulse 97 96 Oximetry Chest Pain [facility] <Heavenly Velazquez - Last Filed: 02/19/20 20:06> <Fiona Clements - Last Filed: 02/24/20 00:02> - [facility] Patient is a 69-year-old female here for left-sided chest pain has been intermi ttent since 1 PM today. She denies history of heart disease. Her vital signs are stable upon arrival. EKG shows no signs of acute ischemia. She is on Coumadin for hx of TIA and factor V. Lab work shows elevated coags INR is 3.4. Mild dehydration, troponin is normal. Urine shows no signs of infection. Chest x-ray shows no acute process. Patient has been stable in the ER. Patient will be admitted for cardiac rule out and to trace troponins. Patient is agreeable with this plan of care. Patient accepted by Dr. Vivas. (Heavenly Velazquez) I was available for consultation in the emergency department. The history and physical exam were done by the midlevel provider. I was consulted for this patients care. I reviewed the case with the midlevel provider and based on their presentation of the patient, I agree with the assessment, medical decision making and plan of care as documented. Chart was dictated using [employer] dictation software. Attempts were made to correct any dictation errors however some typographical errors may persist. Patient was seen during a national state of emergency due to the Covid-19 pandemic. (Fiona Clements) Disposition Is patient prescribed a controlled substance at d/c from ED?: No Decision Date: 02/19/20 Decision Time: 19:22 <Heavenly Vealzquez - Last Filed: 02/19/20 20:06> <Fiona Clements - Last Filed: 02/24/20 00:02> Clinical Impression: Chest pain Disposition: ADMITTED IP TO THIS HOSP Condition: Stable
[2020-02-19] MEDS ORDERED: SODIUM CHLORIDE 0.9% 1,000 ML IV STA (17:34)
--- NOTE | 2020-02-19 17:55 | XR ---
EXAMINATION TYPE: XR chest 2V DATE OF EXAM: 02/19/2020 COMPARISON: NONE HISTORY: Left-sided chest pain and tachycardia. TECHNIQUE: Frontal and lateral views of the chest are obtained. FINDINGS: Mild to moderate biapical pleural/parenchymal scarring. There is chronic parenchymal mae e without suspicious focal air space opacity, pleural effusion, or pneumothorax seen. The cardiac si lhouette size is within normal limits. Slightly scoliotic curvature visualized upper lumbar spine. IMPRESSION: Chronic changes without acute pulmonary process.
[2020-02-19 18:00] LABS: Albumin 4.8 g/dL (3.5-5.0); Calcium 9.8 mg/dL (8.4-10.2); Magnesium 2.1 mg/dL (1.6-2.3); Total Bilirubin 0.8 mg/dL (0.2-1.3); Total Protein 7.9 g/dL (6.3-8.2)
[2020-02-19 18:19] LABS: Basophils # (A) 0.1 k/uL (0-0.2); Basophils % (A) 1 %; Eosinophils # (A) 0.2 k/uL (0-0.7); Eosinophils % (A) 3 %; HCT 42.3 % (34.0-46.0); HGB 13.8 gm/dL (11.4-16.0); Lymphocytes % (A) 31 %; MCHC 32.7 g/dL (31.0-37.0); MCV 91.9 fL (80.0-100.0); Mean Platelet Volume 8.3; Monocytes # (A) 0.4 k/uL (0-1.0); Monocytes % (A) 7 %; Neutrophils # (A) 3.5 k/uL (1.3-7.7); Neutrophils % (A) 55 %; Platelet Count 287 k/uL (150-450); RDW 12.8 % (11.5-15.5); WBC 6.4 k/uL (3.8-10.6)
[2020-02-19 18:27] LABS: Appearance,Urine Clear (Clear); Bilirubin,Urine Negative (Negative); Blood,Urine Trace (Negative); Color,Urine Light Yellow; Glucose,Urine (UA) Negative (Negative); Ketones,Urine Negative (Negative); Leukocyte Esterase,Urine Negative (Negative); Nitrite,Urine Negative (Negative); PH, Urine 5.5 (5.0-8.0); Protein,Urine Negative (Negative); RBC,Urine <1 /hpf (0-5); Specific Gravity,Urine 1.005 (1.001-1.035); Urobilinogen,Urine <2.0 mg/dL (<2.0); WBC,Urine <1 /hpf (0-5)
[2020-02-19 18:31] LABS: INR 3.4 (<1.2); Partial Thromboplastin Time 38.1 sec (22.0-30.0); Prothrombin Time 32.9 sec (9.0-12.0)
[2020-02-19] MEDS ORDERED: NITROGLYCERIN SL TABS 0.4 MG TAB SUBLINGUAL PRN (19:50)
[2020-02-19] MEDS ORDERED: ONDANSETRON 4 MG/2 ML VIAL IVP STA (19:50)
[2020-02-19] MEDS ORDERED: KETOROLAC 30 MG/ML 1 ML VIAL IVP STA (19:50)
[2020-02-19 22:02] VITALS: RESP 16
[2020-02-20] MEDS ORDERED: LEVOTHYROXINE 50 MCG TAB PO SCH (06:30)
[2020-02-20 08:03] LABS: Cholesterol 154 mg/dL (<200); HDL Cholesterol 75 mg/dL (40-60); LDL Cholesterol,Calculated 65 mg/dL (0-99); Triglycerides 68 mg/dL (<150)
[2020-02-20] MEDS ORDERED: ATORVASTATIN 10 MG TAB PO SCH (09:00)
[2020-02-20] MEDS ORDERED: LISINOPRIL 5 MG TAB PO SCH (09:00)
[2020-02-20] MEDS ORDERED: ASPIRIN 325 MG TAB PO SCH (09:00)
[2020-02-20] MEDS ORDERED: PANTOPRAZOLE 40 MG TABLET PO SCH (09:00)
--- NOTE | 2020-02-20 10:33 | ECHOF ---
Referral Reason:chest pain MEASUREMENTS -------- HEIGHT: 165.1 cm WEIGHT: 51.3 kg BP: 103/63 RVIDd: 2.8 cm (< 3.3) IVSd: 1.2 cm (0.6 - 1.1) LVIDd: 3.0 cm (3.9 - 5.3) LVPWd: 1.2 cm (0.6 - 1.1) IVSs: 1.5 cm LVIDs: 2.0 cm LVPWs: 1.6 cm LA Diam: 2.7 cm (2.7 - 3.8) LAESV Index (A-L): 16.10 ml/m Ao Diam: 3.0 cm (2.0 - 3.7) AV Cusp: 2.0 cm (1.5 - 2.6) MV EXCURSION: 14.273 mm (> 18.000) MV EF SLOPE: 113 mm/s (70 - 150) EPSS: 0.6 cm MV E Roger: 0.80 m/s MV DecT: 201 ms MV A Roger: 0.73 m/s MV E/A Ratio: 1.09 RAP: 5.00 mmHg RVSP: 35.43 mmHg FINDINGS -------- Sinus rhythm. This was a technically good study. The left ventricular size is normal. There is borderline concentric left ventricular hypertrophy. Overall left ventricular systolic function is normal with, an EF between 60 - 65 %. The right ventricle is normal in size. Normal LA size by volume 22+/-6 ml/m2. The right atrium is normal in size. Interatrial and interventricular septum intact. There is mild aortic valve sclerosis. The mitral valve leaflets are mildly thickened. Mild mitral annular calcification present. Mild m itral regurgitation is present. Moderate tricuspid regurgitation present. There is mild pulmonary hypertension. The right ventric ular systolic pressure, as measured by Doppler, is 35.43mmHg. The pulmonic valve was not well visualized. The aortic root size is normal. Normal inferior vena cava with normal inspiratory collapse consistent with estimated right atrial pre ssure of 5 mmHg. There is no pericardial effusion. CONCLUSIONS -------- 1. Sinus rhythm. 2. This was a technically good study. 3. The left ventricular size is normal. 4. There is borderline concentric left ventricular hypertrophy. 5. Overall left ventricular systolic function is normal with, an EF between 60 - 65 %. 6. The right ventricle is normal in size. 7. Normal LA size by volume 22+/-6 ml/m2. 8. The right atrium is normal in size. 9. Interatrial and interventricular septum intact. 10. There is mild aortic valve sclerosis. 11. The mitral valve leaflets are mildly thickened. 12. Mild mitral annular calcification present. 13. Mild mitral regurgitation is present. 14. Moderate tricuspid regurgitation present. 15. There is mild pulmonary hypertension. 16. The right ventricular systolic pressure, as measured by Doppler, is 35.43mmHg. 17. The pulmonic valve was not well visualized. 18. The aortic root size is normal. 19. Normal inferior vena cava with normal inspiratory collapse consistent with estimated right atrial pressure of 5 mmHg. 20. There is no pericardial effusion. BEAD BUILDER: Donna Ndiaye RDCS
--- NOTE | 2020-02-20 10:41 | P.CRDCN ---
History of Present Illness Consult date: 02/20/20 Requesting physician: Amadou Vivas Consult reason: chest pain Chief complaint: Chest pain History of present illness: This is a 68-year-old female with history of factor V Leiden deficiency, she also has a history of TIA, hypertension, hyperlipidemia, recent GI bleed in December of this year. Presented to the hospital with symptoms of mainly fatigue, with a vague discomfort in the left side of her chest that actually doubled her over. She states also that she's been extremely gassy and having some abdominal discomfort since her recent GI bleed. Her chest x-ray on presentation here did not reveal any acute changes. EKG showed normal sinus rhythm with no acute changes. Blood pressure 104/60 with a heart rate of 80 respirations 1898% on room air. White blood cell count 6.4, hemoglobin 13.8, platelet count 287. INR 3.4. Sodium 135, potassium 4.0, BUN 21, creatinine 0.9. Magnesium 2.1, troponins negative 3. Bates virus was not detected. Patient was seen and examined by Dr. Lewis this morning. Denied any chest discomfort or difficulty in breathing. Past Medical History Past Medical History: Hypertension, Thyroid Disorder Additional Past Medical History / Comment(s): fact 5 blood disorder, thrombocytopenia, Diverticulosis History of Any Multi-Drug Resistant Organisms: None Reported Past Surgical History: Appendectomy, Cholecystectomy, Tonsillectomy, Tubal Ligation Additional Past Surgical History / Comment(s): hemorrhoid Past Psychological History: No Psychological Hx Reported Smoking Status: Never smoker Past Alcohol Use History: None Reported Past Drug Use History: None Reported - Past Family History Father History Unknown: Yes Additional Family Medical History / Comment(s): passed from lung CA Mother History Unknown: Yes Additional Family Medical History / Comment(s): stated having heart problems Brother(s) Family Medical History: Myocardial Infarction ([place]) Additional Family Medical History / Comment(s): brother passed at 52 from heart attack Medications and Allergies Home Medications Medication Instructions Recorded Confirmed Type Atorvastatin [Lipitor] 10 mg PO DAILY 01/04/20 02/19/20 History Cholecalciferol [Vitamin D3 (25 1,000 unit PO DAILY 01/04/20 02/19/20 History Mcg = 1000 Iu)] Pantoprazole [Protonix] 40 mg PO DAILY 01/04/20 02/19/20 History Warfarin [Coumadin] 3 mg PO SUTUWETHSA@1800 01/04/20 02/19/20 History Warfarin [Coumadin] 6 mg PO MOFR@1800 01/04/20 02/19/20 History Cetirizine HCl [Zyrtec] 10 mg PO DAILY@1800 02/19/20 02/19/20 History Levothyroxine Sodium [Synthroid] 50 mcg PO DAILY 02/19/20 02/19/20 History Lisinopril [Zestril] 5 mg PO DAILY 02/19/20 02/19/20 History Allergies Allergy/AdvReac Type Severity Reaction Status Date / Time No Known Allergies Allergy Verified 02/19/20 18:56 Physical Exam Vitals: Vital Signs Temp Pulse Pulse Resp BP BP Pulse Ox 02/20/20 08:00 97.2 F L 62 16 116/73 99 02/20/20 04:50 97.7 F 83 16 103/63 98 02/19/20 22:20 97.5 F L 75 16 146/69 99 02/19/20 22:00 64 16 108/63 96 02/19/20 21:00 64 18 135/87 97 02/19/20 20:00 65 18 149/94 97 02/19/20 19:03 74 20 151/92 100 02/19/20 19:00 66 18 164/97 97 02/19/20 18:03 74 20 151/97 100 02/19/20 17:03 20 02/19/20 17:01 98.0 F 95 20 154/84 98 Intake and Output 02/19/20 02/20/20 02/20/20 22:59 06:59 14:59 Output Total 120 Balance -120 Output: Urine 120 Other: Voiding Method Toilet Toilet # Voids 1 Weight 51.9 kg 51.6 kg PHYSICAL EXAMINATION: GENERAL: 69-year-old female in no acute distress at the time of examination HEENT: Head is atraumatic, normocephalic. Pupils equal, round. Sclera anicteric. Conjunctiva are clear. Mucous membranes of the mouth are moist. Neck is supple. There is no elevated jugular venous pressure. No carotid bruit is heard. HEART EXAMINATION: Heart S1, S2 normal. No murmur or gallop heard. CHEST EXAMINATION: Lungs are clear to auscultation and precussion. No chest wall tenderness is noted on palpation or with deep breathing. ABDOMEN: Soft, nontender. Bowel sounds are heard. No organomegaly noted. EXTREMITIES: 2+ peripheral pulses with no evidence of peripheral edema and no calf tenderness noted. NEUROLOGIC patient is awake, alert and oriented 3 . . Results 02/19/20 17:25 02/19/20 17:25 Cardiac Enzymes 02/19/20 02/19/20 02/19/20 Range/Units 17: 17: 22:24 AST 38 H (14-36) U/L Troponin I <0.012 <0.012 (0.000-0.034) ng/mL 02/20/20 Range/Units 05:31 AST (14-36) U/L Troponin I <0.012 (0.000-0.034) ng/mL Coagulation 02/19/20 Range/Units 17: PT 32.9 H (9.0-12.0) sec APTT 38.1 H (22.0-30.0) sec Lipids 02/20/20 Range/Units 05:31 Triglycerides 68 (<150) mg/dL Cholesterol 154 (<200) mg/dL HDL Cholesterol 75 H (40-60) mg/dL CBC 02/19/20 Range/Units 17:25 WBC 6.4 (3.8-10.6) k/uL RBC 4.60 (3.80-5.40) m/uL Hgb 13.8 (11.4-16.0) gm/dL Hct 42.3 (34.0-46.0) % Plt Count 287 (150-450) k/uL Comprehensive Metabolic Panel 02/19/20 Range/Units 17:25 Sodium 135 L (137-145) mmol/L Potassium 4.0 (3.5-5.1) mmol/L Chloride 100 (98-107) mmol/L Carbon Dioxide 26 (22-30) mmol/L BUN 21 H (7-17) mg/dL Creatinine 0.96 (0.52-1.04) mg/dL Glucose 101 H (74-99) mg/dL Calcium 9.8 (8.4-10.2) mg/dL AST 38 H (14-36) U/L ALT 28 (4-34) U/L Alkaline Phosphatase 82 (38-126) U/L Total Protein 7.9 (6.3-8.2) g/dL Albumin 4.8 (3.5-5.0) g/dL Current Medications Generic Name Dose Route Start Last Admin Trade Name Roryq PRN Reason Stop Dose Admin Aspirin 81 mg 02/21/20 09:00 Aspirin PO DAILY TSERING Atorvastatin Calcium 10 mg 02/20/20 09:00 02/20/20 08:48 Lipitor PO 10 mg DAILY TSERING Administration Levothyroxine Sodium 50 mcg 02/20/20 06:30 02/20/20 05:15 Synthroid PO 50 mcg 0630 TSERING Administration Lisinopril 5 mg 02/20/20 09:00 02/20/20 08:48 Zestril PO 5 mg DAILY TSERING Administration Loratadine 10 mg 02/20/20 18:00 Claritin PO DAILY@1800 TSERING Nitroglycerin 0.4 mg 02/19/20 19:50 Nitrostat SUBLINGUAL Q5M PRN Chest Pain Pantoprazole Sodium 40 mg 02/20/20 09:00 02/20/20 08:48 Protonix PO 40 mg DAILY TSERING Administration Intake and Output 02/19/20 02/20/20 02/20/20 22:59 06:59 14:59 Output Total 120 Balance -120 Output: Urine 120 Other: Voiding Method Toilet Toilet # Voids 1 Weight 51.9 kg 51.6 kg 02/19/20 17:25 02/19/20 17:25 EKG Interpretations (text) EKG showed normal sinus rhythm with no acute changes. Assessment and Plan Plan: Assessment and plan #1 symptoms of fatigue, with vague chest discomfort, atypical for acute coronary syndrome. Troponins were negative 3. EKG showed a normal sinus rhythm with no acute changes. #2 history of factor V Leiden deficiency with recent GI bleed in December of this year #3 history of prior TIA, on Coumadin for anticoagulation, INR 3.4 #4 hypertension #5 hyperlipidemia Plan We will obtain an echocardiogram with Doppler study as well as a d-dimer. If the patient's d-dimer comes back negative we would recommend that she undergo dobutamine echocardiographic study which will be scheduled for today. Further recommendations to follow. DNP note has been reviewed, I agree with a documented findings and plan of care. Patient was seen and examined.
[2020-02-20 10:51] VITALS: BMI 18.9
[2020-02-20] MEDS ORDERED: DOBUTamine DRIP for NUC MED 500 MG in DEXTROSE/WATER 1 250ML.BAG IV ONE (11:45)
--- NOTE | 2020-02-20 12:34 | P.STRESS ---
- Stress Test Note Stress Test Results/Findings: Exam Performed: dobutamine stress echo Exam Date: 02/20/20 Reason for Exam: CP Height: 5 ft 5 in Weight: 51.6 kg Protocol: DOBUTAMINE STRESS ECHO Stage: NA Duration of Exercise: NA Resting Heart Rate: 70 Resting Blood Pressure: 128/72 Maximum Achieved Heart Rate: 130 Maximum Achieved Blood Pressure: 136/56 85% PMHR: 127 100% PMHR: 149 METS: NA Technologist Comment: Stress Test Results/Findings: This is a 69-year-old female with history of hypertension, history of TIA, hypercholesterolemia and also family history being evaluated for symptoms of chest pain and palpitations. Stress data: Baseline EKG showed sinus rhythm with normal AK interval and QRS duration. Blood pressure at rest is 128/72 with pulse rate of 70. A standard dose of dobutamine was initiated at 10 mics and was titrated to 30 mics, achieving a maximum heart rate of 136 with a blood pressure 125/42. EKGs taken during exercise showed mild ST depression of about a millimeter in inferolateral leads. Patient did not experience any chest pains. Echo data: Baseline echo images show normal wall motion and thickening. Exercise echo images showed augmentation of wall motion and thickening at low dose and high dose dobutamine. Final impression: #1. Borderline ST-T changes during dobutamine infusion, not specific for ischemia #2. Negative dobutamine stress echo
[2020-02-20 13:00] VITALS: BP 98/68; PULSE 66; TEMP 97.8
[2020-02-20] MEDS ORDERED: LORATADINE 10 MG TAB PO SCH (18:00)
--- NOTE | 2020-02-20 21:23 | P.HPIM ---
History of Present Illness H&P Date: 02/20/20 Chief Complaint: Chest pain This is a 69-year-old patient of Dr. Connor Ribera from [address]. Chronic stable medical conditions include hypertension, hypothyroid, diverticulosis, factor V blood disorder. Patient yesterday finished doing her housework when she developed left precordial sharp pain very severe. Patient had to sit down or lie on the couch. Then for about 30 minutes she noticed that she had palpitations. Some dizziness. There was no radiation no sweating no perspiration. Denies any fever and chills no cough. Patient been having trouble with reflux symptoms and still getting quite worse otherwise no prior cardiac history. Admitted for the same. Review of systems: GEN.: None EYES: None HEENT: None NECK: None RESPIRATORY: None CARDIOVASCULAR: As above GASTROINTESTINAL: Uncontrolled reflux GENITOURINARY: None MUSCULOSKELETAL: None LYMPHATICS: None HEMATOLOGICAL: None PSYCHIATRY: None NEUROLOGICAL: None. Past medical history to include: Hypertension, hypothyroid, factor V blood disorder, thrombus or repeated, colonic diverticulosis Social history: Son lives with her. No smoking or alcohol. Physical examination: VITAL SIGNS: 98, 95, 20, 154/84, 98% on room air GENERAL: BMI 18.9, sitting up, awake. EYES: Pupils equal. Conjunctiva normal. HEENT: External appearance of nose and ears normal, oral cavity grossly normal. NECK: JVD not raised; masses not palpable. HEART: First and second heart sounds are normal; no edema. LUNGS: Respiratory rate normal; clear to auscultation. ABDOMEN: Soft, nontender, liver spleen not palpable, no masses palpable. PSYCH: Alert and oriented x3; mood and affect normal. NEUROLOGICAL: Cranial nerves grossly intact; no facial asymmetry, power and sensation grossly intact. LYMPHATICS: No lymph nodes palpable in the axilla and neck INVESTIGATIONS, reviewed in the clinical context: White count 6.4 hemoglobin 13.8 INR 3.4 progression 4 creatinine 0.96 Troponin I 3 negative LDL 65 COVID-19 PCF-not detected EKG tracing personally reviewed by me-normal sinus rhythm Chest x-ray film shows some chronic changes-personally reviewed by me Assessment: -Sudden onset of rather severe left anterior chest wall pain. Could be musculoskeletal discomfort. Rule out cardiac cause -Essential hypertension -Hypothyroid -Factor V Leyden mutation disorder -Colonic diverticulosis -Coumadin monitoring -Uncontrolled GERD Plan: Home medications were continued. Initially Coumadin was held. Cardiology was consulted. They wanted a stress test. Dose of PPI was increased care was discussed with the patient. Past Medical History Past Medical History: Hypertension, Thyroid Disorder Additional Past Medical History / Comment(s): fact 5 blood disorder, thrombocytopenia, Diverticulosis History of Any Multi-Drug Resistant Organisms: None Reported Past Surgical History: Appendectomy, Cholecystectomy, Tonsillectomy, Tubal Ligation Additional Past Surgical History / Comment(s): hemorrhoid Past Psychological History: No Psychological Hx Reported Smoking Status: Never smoker Past Alcohol Use History: None Reported Past Drug Use History: None Reported - Past Family History Father History Unknown: Yes Additional Family Medical History / Comment(s): passed from lung CA Mother History Unknown: Yes Additional Family Medical History / Comment(s): stated having heart problems Brother(s) Family Medical History: Myocardial Infarction ([place]) Additional Family Medical History / Comment(s): brother passed at 52 from heart attack Medications and Allergies Home Medications Medication Instructions Recorded Confirmed Type Atorvastatin [Lipitor] 10 mg PO DAILY 01/04/20 02/19/20 History Cholecalciferol [Vitamin D3 (25 1,000 unit PO DAILY 01/04/20 02/19/20 History Mcg = 1000 Iu)] Warfarin [Coumadin] 3 mg PO SUTUWETHSA@1800 01/04/20 02/19/20 History Warfarin [Coumadin] 6 mg PO MOFR@1800 01/04/20 02/19/20 History Cetirizine HCl [Zyrtec] 10 mg PO DAILY@1800 02/19/20 02/19/20 History Levothyroxine Sodium [Synthroid] 50 mcg PO DAILY 02/19/20 02/19/20 History Lisinopril [Zestril] 5 mg PO DAILY 02/19/20 02/19/20 History Pantoprazole [Protonix] 40 mg PO BID #60 tab 02/20/20 Rx Psyllium Husk (with Sugar) 0 gm PO BID #60 gm 02/20/20 Rx [Metamucil Powder] Allergies Allergy/AdvReac Type Severity Reaction Status Date / Time No Known Allergies Allergy Verified 02/19/20 18:56 Physical Exam Vitals: Vital Signs Temp Pulse Pulse Resp BP BP Pulse Ox 02/20/20 08:00 97.2 F L 62 16 116/73 99 02/20/20 04:50 97.7 F 83 16 103/63 98 02/19/20 22:20 97.5 F L 75 16 146/69 99 02/19/20 22:00 64 16 108/63 96 02/19/20 21:00 64 18 135/87 97 02/19/20 20:00 65 18 149/94 97 02/19/20 19:03 74 20 151/92 100 02/19/20 19:00 66 18 164/97 97 02/19/20 18:03 74 20 151/97 100 02/19/20 17:03 20 02/19/20 17:01 98.0 F 95 20 154/84 98 Intake and Output 02/19/20 02/20/20 02/20/20 22:59 06:59 14:59 Output Total 120 Balance -120 Output: Urine 120 Other: Voiding Method Toilet Toilet # Voids 1 Weight 51.9 kg 51.6 kg 51.6 kg Results CBC & Chem 7: 02/19/20 17:25 02/19/20 17:25 Labs: Abnormal Lab Results - Last 24 Hours (Table) 02/19/20 02/19/20 02/19/20 Range/Units 17:25 17:25 17:43 PT 32.9 H (9.0-12.0) sec INR 3.4 H (<1.2) APTT 38.1 H (22.0-30.0) sec Sodium 135 L (137-145) mmol/L BUN 21 H (7-17) mg/dL Glucose 101 H (74-99) mg/dL AST 38 H (14-36) U/L HDL Cholesterol (40-60) mg/dL Urine Blood Trace H (Negative) 02/20/20 Range/Units 05:31 PT (9.0-12.0) sec INR (<1.2) APTT (22.0-30.0) sec Sodium (137-145) mmol/L BUN (7-17) mg/dL Glucose (74-99) mg/dL AST (14-36) U/L HDL Cholesterol 75 H (40-60) mg/dL Urine Blood (Negative) Thrombosis Risk Factor Assmnt - Choose All That Apply Other Risk Factors: Yes Each Risk Factor Represents 2 Points: Age 61-74 years Each Risk Factor Represents 3 Points: Positive Factor V Leiden Thrombosis Risk Factor Assessment Total Risk Factor Score: 5 Thrombosis Risk Factor Assessment Level: High Risk
--- NOTE | 2020-02-20 21:28 | P.DS ---
Providers Date of admission: 02/19/20 19:56 Expected date of discharge: 02/20/20 Attending physician: Amadou Vivas Consults: 02/19/20 19:50 Consult Physician Urgent Consulting Provider: [facility] Consult Reason/Comments: chest pain Do you want consulting provider notified?: Yes Primary care physician: Nicholas Ribera [facility] Course: Chief Complaint: Chest pain This is a 69-year-old patient of Dr. Connor Ribera from [address]. Chronic stable medical conditions include hypertension, hypothyroid, diverticulosis, factor V blood disorder. Patient yesterday finished doing her housework when she developed left precordial sharp pain very severe. Patient had to sit down or lie on the couch. Then for about 30 minutes she noticed that she had palpitations. Some dizziness. There was no radiation no sweating no perspiration. Denies any fever and chills no cough. Patient been having trouble with reflux symptoms and still getting quite worse otherwise no prior cardiac history. Admitted for the same. Troponins were negative. Dobutamine stress echocardiogram was negative. Cleared by cardiology. Pain is felt to be possibly musculoskeletal. Patient also is uncontrolled GERD. Does of PPI increase. Discussed with the patient. We will follow with GI Consultation: Dr. Dick Lewis from cardiology Physical examination: VITAL SIGNS: 97.2, 62, 16, 116 073, 99% on room air GENERAL: BMI 18.9, sitting up, awake. EYES: Pupils equal. Conjunctiva normal. HEENT: External appearance of nose and ears normal, oral cavity grossly normal. NECK: JVD not raised; masses not palpable. HEART: First and second heart sounds are normal; no edema. LUNGS: Respiratory rate normal; clear to auscultation. ABDOMEN: Soft, nontender, liver spleen not palpable, no masses palpable. PSYCH: Alert and oriented x3; mood and affect normal. INVESTIGATIONS, reviewed in the clinical context: White count 6.4 hemoglobin 13.8 INR 3.4 progression 4 creatinine 0.96 Troponin I 3 negative LDL 65 COVID-19 PCF-not detected EKG tracing personally reviewed by me-normal sinus rhythm Chest x-ray film shows some chronic changes-personally reviewed by me Assessment: -left anterior chest wall pain. Possibly musculoskeletal discomfort. -Essential hypertension -Hypothyroid -Factor V Leyden mutation disorder -Colonic diverticulosis -Coumadin monitoring -Uncontrolled GERD Disposition: Home Patient Condition at Discharge: Stable Plan - Discharge Summary New Discharge Prescriptions: New Psyllium Husk (with Sugar) [Metamucil Powder] 0 gm PO BID #60 gm Continue Warfarin [Coumadin] 3 mg PO SUTUWETHSA@1800 Warfarin [Coumadin] 6 mg PO MOFR@1800 Atorvastatin [Lipitor] 10 mg PO DAILY Cholecalciferol [Vitamin D3 (25 Mcg = 1000 Iu)] 1,000 unit PO DAILY Lisinopril [Zestril] 5 mg PO DAILY Levothyroxine Sodium [Synthroid] 50 mcg PO DAILY Cetirizine HCl [Zyrtec] 10 mg PO DAILY@1800 Changed Pantoprazole [Protonix] 40 mg PO BID #60 tab Discharge Medication List Atorvastatin [Lipitor] 10 mg PO DAILY 01/04/20 [History] Cholecalciferol [Vitamin D3 (25 Mcg = 1000 Iu)] 1,000 unit PO DAILY 01/04/20 [History] Warfarin [Coumadin] 3 mg PO SUTUWETHSA@1800 01/04/20 [History] Warfarin [Coumadin] 6 mg PO MOFR@1800 01/04/20 [History] Cetirizine HCl [Zyrtec] 10 mg PO DAILY@1800 02/19/20 [History] Levothyroxine Sodium [Synthroid] 50 mcg PO DAILY 02/19/20 [History] Lisinopril [Zestril] 5 mg PO DAILY 02/19/20 [History] Pantoprazole [Protonix] 40 mg PO BID #60 tab 02/20/20 [Rx] Psyllium Husk (with Sugar) [Metamucil Powder] 0 gm PO BID #60 gm 02/20/20 [Rx] Follow up Appointment(s)/Referral(s): Nicholas Ribera MD [Primary Care Provider] - 02/22/20 1:00 pm Vineet Lewis MD [STAFF PHYSICIAN] - 03/07/20 3:00 pm Patient Instructions/Handouts: Chest Pain (GEN) Activity/Diet/Wound Care/Special Instructions: dc if ok with cardiology Discharge Disposition: HOME SELF-CARE
[2020-02-21] MEDS ORDERED: ASPIRIN 81 MG PO SCH (09:00)
== END 2020-02-20 15:50 | disposition home or self-care (01) ==
LOC: EC 16:58 → 3SCARD 19:56
PROVIDERS: ADMIT Hospitalist; ATTEND Hospitalist
DX: R07.89 Other chest pain (principal); R00.2 Palpitations; R10.9 Unspecified abdominal pain; K58.9 Irritable bowel syndrome, unspecified; K57.90 Diverticulosis of intestine, part unspecified, without perforation or abscess without bleeding; E86.0 Dehydration; R42 Dizziness and giddiness; R53.83 Other fatigue; I10 Essential (primary) hypertension; E03.9 Hypothyroidism, unspecified; Z11.59 Encounter for screening for other viral diseases; K21.9 Gastro-esophageal reflux disease without esophagitis; D68.51 Activated protein C resistance; D69.6 Thrombocytopenia, unspecified; Z87.19 Personal history of other diseases of the digestive system; E78.5 Hyperlipidemia, unspecified; Z86.73 Personal history of transient ischemic attack (TIA), and cerebral infarction without residual deficits; Z90.49 Acquired absence of other specified parts of digestive tract; Z98.51 Tubal ligation status; Z98.890 Other specified postprocedural states; Z80.1 Family history of malignant neoplasm of trachea, bronchus and lung; Z82.49 Family history of ischemic heart disease and other diseases of the circulatory system; Z79.01 Long term (current) use of anticoagulants; Z79.82 Long term (current) use of aspirin; Z79.890 Hormone replacement therapy; Z79.899 Other long term (current) drug therapy
CPT/HCPCS: 93005 ×2; 96361; 96374; 96375; 99285; 36415; 93351; 85379; 83880; 80061; 80053; 83690; 83735; 84484 ×2; 85025; 85610; 85730; 81001; 87635; 71046; G0378 ×2; J1250; J2405; J1885; 93306

== ENCOUNTER 2020-04-11 09:32 | Day surgery (SDC) | payer MEDICARE, OTHER ==
[2020-04-09 15:46] VITALS: BMI 19.1
[~2020-04-11 09:32] MED LIST: LACTATED RINGERS 1,000 ML IV SCH; LIDOCAINE 1% (10MG/ML) FOR IV START INTRADERMA PRN
[2020-04-11 09:58] VITALS: TEMP 97.3
[2020-04-11] MEDS ORDERED: ePHEDrine SULFATE/0.9% NACL/PF 50 MG/5 ML SYRINGE IV ONE (10:22)
[2020-04-11] MEDS ORDERED: PROPOFOL 10 MG/ML 20 ML VIAL IV ONE (10:22)
--- NOTE | 2020-04-11 10:39 | P.PCN ---
Date of Procedure: 04/11/20 Procedure(s) Performed: BRIEF HISTORY: Patient is a 69-year-old pleasant [] scheduled for an elective colonoscopy as a part of evaluation of intermittent rectal bleeding for the last 1 week duration. She also has prior history of colon polyps. PROCEDURE PERFORMED: Colonoscopy. PREOPERATIVE DIAGNOSIS: Intermittent rectal bleeding. IV sedation per Anesthesia. PROCEDURE: After informed consent was obtained, the patient, was brought into the endoscopy unit. IV sedation was administered by Anesthesia under continuous monitoring. Digital rectal examination was normal. Initially the Olympus CF-160 flexible video colonoscope was then inserted in the rectum, gradually advanced into the cecum without any difficulty. Careful examination was performed as the scope was gradually being withdrawn. Ileocecal valve and the appendiceal orifice were visualized and appeared normal. Prep was excellent. Mucosa of the cecum, ascending colon, transverse colon, descending colon, sigmoid colon, and rectum appeared normal. Retroflexion was performed in the rectum and no lesions were seen. The patient tolerated the procedure well. IMPRESSION: Normal-appearing colon from rectum to cecum with no evidence of colorectal neoplasia Small internal hemorrhoids. RECOMMENDATIONS: Findings of this examination were discussed with the patient as well as her family. She was advised to have a repeat colonoscopy in 5 years because of the prior history of colon polyps.
[2020-04-11 11:00] VITALS: BP 102/67; PULSE 84; RESP 18
== END 2020-04-11 11:14 | disposition home or self-care (01) ==
LOC: ORWHC2ENDO 09:32
PROVIDERS: ATTEND Internal Medicine Gastroenterology
DX: K64.8 Other hemorrhoids (principal); I10 Essential (primary) hypertension; I25.10 Atherosclerotic heart disease of native coronary artery without angina pectoris; E78.5 Hyperlipidemia, unspecified; M79.7 Fibromyalgia; E07.9 Disorder of thyroid, unspecified; K21.9 Gastro-esophageal reflux disease without esophagitis; Z86.73 Personal history of transient ischemic attack (TIA), and cerebral infarction without residual deficits; Z79.01 Long term (current) use of anticoagulants; Z79.890 Hormone replacement therapy; Z79.899 Other long term (current) drug therapy
CPT/HCPCS: 45378; J2704

== ENCOUNTER → 2020-06-03 | Outpatient (CLI) | payer MEDICARE, OTHER ==
--- NOTE | 2020-06-03 14:05 | US ---
EXAMINATION TYPE: US carotid duplex BILAT DATE OF EXAM: 06/03/2020 COMPARISON: NONE CLINICAL HISTORY: I65.23 Occlusion and stenosis of bilateral carotid arteries. EXAM MEASUREMENTS: RIGHT: Peak Systolic Velocity (PSV) cm/sec ----- Right CCA: 70.3 ----- Right ICA: 98.7 ----- Right ECA: 87.5 ICA/CCA ratio: 1.4 RIGHT: End Diastole cm/sec ----- Right CCA: 21.2 ----- Right ICA: 32.9 ----- Right ECA: 8.2 LEFT: Peak Systolic Velocity (PSV) cm/sec ----- Left CCA: 88.4 ----- Left ICA: 89.8 ----- Left ECA: 102 ICA/CCA ratio: 1.0 LEFT: End Diastole cm/sec ----- Left CCA: 33.4 ----- Left ICA: 40.6 ----- Left ECA: 21.8 VERTEBRALS (direction of flow): Right Vertebral: Antegrade Left Vertebral: Antegrade Rhythm: Normal Mild atherosclerotic changes with no significant velocity elevations. IMPRESSION: 1. Mild atherosclerotic changes bilaterally with no significant hemodynamic stenosis. Criteria for Assigning % of Stenosis / Diameter reduction (Estimation based on the indirect measurements of the internal carotid artery velocities (ICA PSV). 1. Normal (no stenosis)=ICA PSV < 125 cm/s: ratio < 2.0: ICA EDV<40 cm/s. 2. Less than 50% stenosis=ICA PSV < 125 cm/s: ratio < 2.0: ICA EDV<40 cm/s. 3. 50 to 69% stenosis=ICA PSV of 125 to 230 cm/s: ration 2.0 ? 4.0: ICA EDV 40-100 cm/s. 4. Greater than 70% stenosis to near occlusion= ICA PSV > 230 cm/s: ratio > 4.0: ICA EDV > 100 cm/s. 5. Near occlusion= ICA PSV velocities may be low or undetectable: variable ratio and ICA EDV. 6. Total occlusion=unable to detect flow.
== END | disposition home or self-care (01) ==
LOC: CPPFTMAIN 11:57
PROVIDERS: ATTEND Family Medicine
DX: J44.9 Chronic obstructive pulmonary disease, unspecified (principal); R94.2 Abnormal results of pulmonary function studies; I65.23 Occlusion and stenosis of bilateral carotid arteries
CPT/HCPCS: 93880; 94060; 94726; 94729

== ENCOUNTER 2021-04-26 | Emergency (ER) | payer MEDICARE, OTHER | END 2021-04-26 18:11 | disposition home or self-care (01) ==